=== PATIENT | female | born 1960 | race African-American/Black ===

== ENCOUNTER 2017-06-01 16:04 | Emergency (ER) | payer OTHER ==
[~2017-06-01] VITALS: Ht 167.6 cm; Wt 47.0 kg
[~2017-06-01 16:04] MED LIST: CLON.5 PO; CLON1 PO; MORP1TAB25 PO
[2017-06-01 16:09] VITALS: BP 120/58; PULSE 120; RESP 18; TEMP 100.1; O2SAT 95
[2017-06-01] MEDS ORDERED: CLON0.5T PO (16:22)
[2017-06-01] MEDS ORDERED: ORPHENADRINE INJ 60 MG/2 ML AMP IM ONE (16:45)
[2017-06-01] MEDS ORDERED: KETOROLAC TROMETHAMINE 60 MG/2 ML (IM) VIAL IM ONE (16:45)
[2017-06-01] MEDS ORDERED: ROBA500T PO (17:01)
--- NOTE | 2017-06-01 17:02 | PD ---
HPI Chief Complaint: Pain: Acute or Chronic Time Seen by Provider: 17:00 Travel History International Travel<30 days: No Contact w/Intl Traveler<30days: No Traveled to known affect area: No History of Present Illness HPI 56-year-old female with history of chronic low back pain on methadone here for evaluation of low back pain after she ran out of her medications 3 days ago. She is asking for injection of pain medication specifically. She is also requesting clonazepam. She reports due to insurance purposes she is unable to see her doctor who prescribes her chronic pain and anxiety medications. She denies injury or trauma of the back. She denies fever, chills, incontinence, saddle anesthesia, paresthesia or weakness of the extremities. She denies any history of IV drug abuse. She reports this pain is similar to her chronic back pain although is more severe because she ran out of her meds. PFSH Past Medical History Arthritis: No Asthma: No Autoimmune Disease: No Blood Disorders: No Anxiety: Yes Depression: Yes Heart Rhythm Problems: No Cancer: No Cardiovascular Problems: Yes (endocarditis) High Cholesterol: No Chemotherapy: No Chest Pain: No Congestive Heart Failure: No COPD: No Cerebrovascular Accident: No Diabetes: No Diminished Hearing: No Gastrointestinal Disorders: Yes (HEP C) GERD: No Glaucoma: Yes Headaches: No Hepatitis: Yes (C) Hiatal Hernia: No Hypertension: No Kidney Stones: No Musculoskeletal: Yes (HERNIATED DISC) Neurologic: No Psychiatric: Yes Reproductive: No Respiratory: No Immunizations Current: No Myocardial Infarction: No Radiation Therapy: No Renal Failure: No Seizures: Yes (UNKNOWN) Sickle Cell Disease: No Sleep Apnea: No Thyroid Disease: No Ulcer: No PNEUMOCCOCAL Vaccine (Year): 2 ?: Not Menopausal: Yes Tubal Ligation: Yes Past Surgical History Abdominal Surgery: Yes (gb) AICD: No Cardiac Surgery: No Cholecystectomy: Yes Ear Surgery: No Endocrine Surgery: No Eye Surgery: No Genitourinary Surgery: No Gynecologic Surgery: Yes (TUBAL LIGATION AGE 17) Oral Surgery: No Pacemaker: No Thoracic Surgery: No Other Surgery: Yes Social History Alcohol Use: No Tobacco Use: Yes (/2 PPD) Substance Use: No (DENIES AT PRESENT) Allergies-Medications (Allergen,Severity, Reaction): Coded Allergies: acetaminophen (Unverified Allergy, Severe, SOB, 06/01/17) aspirin (Unverified Allergy, Severe, DIFFICULTY BREATHING, 06/01/17) erythromycin base (Unverified Allergy, Severe, DIFFICULTY BREATHING, 06/01) hydrocodone (Unverified Allergy, Severe, SOB, 06/01/17) ibuprofen (Unverified Allergy, Severe, DIFFICULTY BREATHING, 06/01/17) naproxen (Unverified Allergy, Severe, throat closes, 06/01/17) Reported Meds & Prescriptions Reported Meds & Active Scripts Active Reported Clonazepam 0.5 Mg Tab 0.5 Mg PO BID Review of Systems Except as stated in HPI: all other systems reviewed are Neg General / Constitutional: No: Fever Eyes: No: Visual changes HENT: No: Headaches Cardiovascular: No: Chest Pain or Discomfort Respiratory: No: Shortness of Breath Gastrointestinal: No: Abdominal Pain Genitourinary: No: Dysuria Skin: No Rash Neurologic: No: Weakness Physical Exam Narrative GENERAL: Thin,well-developed female lying on her stomach and appears comfortable. SKIN: Focused skin assessment warm/dry. HEAD: Normocephalic. EYES: No scleral icterus. No injection or drainage. NECK: Supple, trachea midline. No JVD or lymphadenopathy. CARDIOVASCULAR: Regular rate and rhythm without murmurs, gallops, or rubs. RESPIRATORY: Breath sounds equal bilaterally. No accessory muscle use. GASTROINTESTINAL: Abdomen soft, non-tender, nondistended. MUSCULOSKELETAL: No cyanosis, or edema. 5/5 strength in extremities. Dorsiflex and plantarflex intact. BACK: ttp across the lumbar spine without obvious deformity. No CVA tenderness. Data Data Last Documented VS Vital Signs Date Time Temp Pulse Resp B/P (MAP) Pulse Ox O2 Delivery O2 Flow Rate FiO2 06/01/17 16:09 100.1 120 18 120/58 (78) 95 Orders Orders Ketorolac Inj (Toradol Inj) (06/01/17 16:45) Orphenadrine Inj (Norflex Inj) (06/01/17 16:45) MDM Medical Decision Making Medical Screen Exam Complete: Yes Emergency Medical Condition: Yes Differential Diagnosis Acute on chronic back pain, medication refill, epidural abscess Narrative Course 56-year-old female with history of chronic low back pain on methadone here for evaluation of low back pain after she ran out of her medications 3 days ago. She is asking for injection of pain medication specifically. She is also requesting clonazepam. She is nontoxic appearing. Her vital signs in triage showed a low-grade fever of the temporal 100.1, heart rate of 120. She denies history of IV drug abuse, epidural abscess, osteomyelitis. She denies fever, chills, incontinence, saddle anesthesia, or paresthesia/weakness in extremities. I explained to the patient that I would not prescribe opiates or benzodiazepines refills. Given her abnormal vital signs I recommended blood work and imaging to rule out epidural abscess she refused this Stating she did not believe that this was necessary and just wanted medications now until her follow-up appointment with new pain management on Saturday. She reports this pain is similar to her chronic back pain and is only exacerbated because she ran out of her meds. I explained the risk for infection, paralysis and she verbalizes understanding and agrees to return if she develops new or worsening symptoms or decides to have the workup. Reassessment: Patient is lying comfortably on the bed in no distress. Repeat vitals T 100, HR 105. She is requesting discharge. Diagnosis Primary Impression: Back pain Qualified Codes: M54.42 - Lumbago with sciatica, left side Referrals: Primary Care Physician Additional Instructions: Return to emergency department if he developed new or worsening symptoms. Keep the follow-up appointment with her doctor on Saturday. Disposition: DISCHARGE HOME Condition: Stable Hattie Maddox Jun 01, 2017 17:02
== END 2017-06-01 17:10 | disposition home or self-care (01) ==
LOC: PHEFT 16:04
DX: M54.42 Lumbago with sciatica, left side (principal); F32.9 Major depressive disorder, single episode, unspecified; B19.20 Unspecified viral hepatitis C without hepatic coma; F17.210 Nicotine dependence, cigarettes, uncomplicated; Z79.891 Long term (current) use of opiate analgesic; Z79.899 Other long term (current) drug therapy
CPT/HCPCS: 96372; 99284; J1885; J2360

== ENCOUNTER 2017-10-27 19:07 | Emergency (ER) | payer OTHER ==
[2017-10-27] VITALS (7 sets, daily range): BP systolic 112–149; BP diastolic 63–76; PULSE 93–111; RESP 16; TEMP 98.4–99; O2SAT 98–100
[~2017-10-27] VITALS: Ht 167.6 cm; Wt 53.5 kg
[~2017-10-27 19:07] MED LIST changes: -CLON.5 PO; +CLON0.5T PO; -CLON1 PO; -MORP1TAB25 PO
[2017-10-27] MEDS ORDERED: SODIUM CHLOR 0.9% 1000 ML INJ 1,000 ML IV ONE (19:14)
[2017-10-27] MEDS ORDERED: SODIUM CHLORIDE 0.9% FLUSH 10 ML FLUSH IVF PRN (19:15)
[2017-10-27] MEDS ORDERED: LORazepam 2 MG/ML VIAL IVS ONE (19:15)
--- NOTE | 2017-10-27 19:19 | PD ---
HPI Chief Complaint: Seizure Time Seen by Provider: 19:14 Travel History International Travel<30 days: No ( ) Contact w/Intl Traveler<30days: No ( ) History of Present Illness HPI The patient is 57 years old and arrives by private vehicle from home. Evidently she was seizing in the waiting room and brought back for seizures. Patient does not answer questions and exam room. She has been seen here multiple times previously diagnoses listed include pseudoseizure. PFSH Past Medical History Arthritis: No Asthma: No Autoimmune Disease: No Blood Disorders: No Anxiety: Yes Depression: Yes Heart Rhythm Problems: No Cancer: No Cardiovascular Problems: Yes (endocarditis) High Cholesterol: No Chemotherapy: No Chest Pain: No Congestive Heart Failure: No COPD: No Cerebrovascular Accident: No Diabetes: No Diminished Hearing: No Gastrointestinal Disorders: Yes (HEP C) GERD: No Glaucoma: Yes Headaches: No Hepatitis: Yes (C) Hiatal Hernia: No Hypertension: No Kidney Stones: No Musculoskeletal: Yes (HERNIATED DISC) Neurologic: No Psychiatric: Yes Reproductive: No Respiratory: No Immunizations Current: No Myocardial Infarction: No Radiation Therapy: No Renal Failure: No Seizures: Yes (UNKNOWN) Sickle Cell Disease: No Sleep Apnea: No Thyroid Disease: No Ulcer: No PNEUMOCCOCAL Vaccine (Year): 2 Menopausal: Yes Tubal Ligation: Yes Past Surgical History Abdominal Surgery: Yes (gb) AICD: No Cardiac Surgery: No Cholecystectomy: Yes Ear Surgery: No Endocrine Surgery: No Eye Surgery: No Genitourinary Surgery: No Gynecologic Surgery: Yes (TUBAL LIGATION AGE 17) Oral Surgery: No Pacemaker: No Thoracic Surgery: No Other Surgery: Yes Social History Alcohol Use: No Tobacco Use: Yes (1/2 PPD) Substance Use: No (DENIES AT PRESENT) Allergies-Medications (Allergen,Severity, Reaction): Coded Allergies: acetaminophen (Unverified Allergy, Severe, SOB, 06/01/17) aspirin (Unverified Allergy, Severe, DIFFICULTY BREATHING, 06/01/17) erythromycin base (Unverified Allergy, Severe, DIFFICULTY BREATHING, 06/01) hydrocodone (Unverified Allergy, Severe, SOB, 06/01/17) ibuprofen (Unverified Allergy, Severe, DIFFICULTY BREATHING, 06/01/17) naproxen (Unverified Allergy, Severe, throat closes, 06/01/17) Reported Meds & Prescriptions Reported Meds & Active Scripts Active Clonidine (Clonidine HCl) 0.1 Mg Tab 0.1 Mg PO BID Reported Clonazepam 0.5 Mg Tab 0.5 Mg PO BID Review of Systems ROS Limitations: Clinical Condition, Altered Mental Status Physical Exam Narrative GENERAL: 57-year-old female well-nourished well-developed Vital Signs Date Time Temp Pulse Resp B/P (MAP) Pulse Ox O2 Delivery O2 Flow Rate FiO2 10/27/17 20:25 111 16 119/63 (81) 98 Room Air 10/27/17 19:12 99.0 103 16 149/74 (99) 99 Room Air 10/27/17 19:10 16 100 Nasal Cannula 2.00 10/27/17 19:07 98.4 16 99 SKIN: Warm and dry. HEAD: Atraumatic. Normocephalic. EYES: Pupils equal and round. No scleral icterus. No injection or drainage. ENT: No nasal bleeding or discharge. Mucous membranes pink and moist. NECK: Trachea midline. No JVD. CARDIOVASCULAR: Regular rate and rhythm. RESPIRATORY: No accessory muscle use. Clear to auscultation. Breath sounds equal bilaterally. GASTROINTESTINAL: Abdomen soft, non-tender, nondistended. Hepatic and splenic margins not palpable. MUSCULOSKELETAL: Extremities without clubbing, cyanosis, or edema. No obvious deformities. NEUROLOGICAL: Patient's eyes open intermittently. No verbal response to questions as offered. PSYCHIATRIC: Frequent redirection required. Data Data Last Documented VS Vital Signs Date Time Temp Pulse Resp B/P (MAP) Pulse Ox O2 Delivery O2 Flow Rate FiO2 10/27/17 21:47 107 16 118/76 (90) 98 Nasal Cannula 2.00 10/27/17 19:12 99.0 Orders Orders Complete Blood Count With Diff (10/27/17 19:14) Alcohol (Ethanol) (10/27/17 19:14) Electrocardiogram (10/27/17 ) Ct Brain W/O Iv Contrast(Rout) (10/27/17 ) Blood Glucose (10/27/17 19:14) Ecg Monitoring (10/27/17 19:14) Iv Access Insert/Monitor (10/27/17 19:14) Oximetry (10/27/17 19:14) Cath For Specimen (10/27/17 19:14) Comprehensive Metabolic Panel (10/27/17 19:14) Sodium Chlor 0.9% 1000 Ml Inj (Ns 1000 M (10/27/17 19:14) Sodium Chloride 0.9% Flush (Ns Flush) (10/27/17 19:15) Lorazepam Inj (Ativan Inj) (10/27/17 19:15) Ua Includes Microscopic (10/27/17 19:14) Lorazepam Inj (Ativan Inj) (10/27/17 19:30) Ondansetron Inj (Zofran Inj) (10/27/17 20:00) Drug Screen, Random Urine (10/27/17 20:29) Ed Discharge Order (10/27/17 21:29) Clonidine (Catapres) (10/27/17 21:30) Ed Discharge Order (10/27/17 21:29) Labs Laboratory Tests Test 10/27/17 19:40 10/27/17 20:00 10/27/17 20:06 Urine Collection Type CATH Urine Color YELLOW Urine Turbidity CLEAR Urine pH 6.5 Urine Specific [place] 1.015 Urine Protein NEG mg/dL Urine Glucose (UA) NEG mg/dL Urine Ketones NEG mg/dL Urine Occult Blood NEG Urine Nitrite NEG Urine Bilirubin NEG Urine Urobilinogen 1.0 MG/DL Urine Leukocyte Esterase NEG Urine RBC 4-9 /hpf Urine Squamous Epithelial Cells 0-5 /hpf Urine Amorphous Sediment FEW Urine Mucus FEW /lpf Microscopic Urinalysis Comment CATH-CULT NOT IND White Blood Count 6.2 TH/MM3 Red Blood Count 4.74 MIL/MM3 Hemoglobin 12.9 GM/DL Hematocrit 39.2 % Mean Corpuscular Volume 82.7 FL Mean Corpuscular Hemoglobin 27.1 PG Mean Corpuscular Hemoglobin Concent 32.8 % Red Cell Distribution Width 12.7 % Platelet Count 203 TH/MM3 Mean Platelet Volume 8.3 FL Neutrophils (%) (Auto) 74.5 % Lymphocytes (%) (Auto) 16.8 % Monocytes (%) (Auto) 4.3 % Eosinophils (%) (Auto) 0.1 % Basophils (%) (Auto) 4.3 % Neutrophils # (Auto) 4.6 TH/MM3 Lymphocytes # (Auto) 1.0 TH/MM3 Monocytes # (Auto) 0.3 TH/MM3 Eosinophils # (Auto) 0.0 TH/MM3 Basophils # (Auto) 0.3 TH/MM3 CBC Comment DIFF FINAL Differential Comment Blood Urea Nitrogen 18 MG/DL Creatinine 0.76 MG/DL Random Glucose 122 MG/DL Total Protein 9.1 GM/DL Albumin 4.1 GM/DL Calcium Level 9.4 MG/DL Alkaline Phosphatase 85 U/L Aspartate Amino Transf (AST/SGOT) 47 U/L Alanine Aminotransferase (ALT/SGPT) 55 U/L Total Bilirubin 0.5 MG/DL Sodium Level 141 MEQ/L Potassium Level 3.7 MEQ/L Chloride Level 107 MEQ/L Carbon Dioxide Level 23.4 MEQ/L Anion Gap 11 MEQ/L Estimat Glomerular Filtration Rate 96 ML/MIN Ethyl Alcohol Level LESS THAN 3 MG/DL Urine Opiates Screen POS Urine Barbiturates Screen NEG Urine Amphetamines Screen NEG Urine Benzodiazepines Screen NEG Urine Cocaine Screen POS Urine Cannabinoids Screen NEG MDM Medical Decision Making Medical Screen Exam Complete: Yes Emergency Medical Condition: Yes Medical Record Reviewed: Yes Differential Diagnosis seizure, pseudoseizure, opioid withdrawal, electrolyte imbalance, anemia, infection, ICH Narrative Course CBC & BMP Diagram 10/27/17 20:00 Total Protein 9.1 H, Albumin 4.1, Calcium Level 9.4, Alkaline Phosphatase 85, Aspartate Amino Transf (AST/SGOT) 47 H, Alanine Aminotransferase (ALT/SGPT) 55 H , Total Bilirubin 0.5 Urine tox: cocaine and opioids Episodes of self-inflicted vomiting/gagging observed Pt will be discharge home. Patient requested a clonidine prescription which we can do because she will not receive her methadone from a week. Diagnosis Primary Impression: Pseudoseizures Additional Impressions: Opioid abuse Polysubstance abuse Med/Other Pt SpecificInfo: No Change to Meds Scripts Clonidine (Clonidine) 0.1 Mg Tab 0.1 MG PO BID for Blood Pressure Management, #10 TAB 0 Refills Prov: Ever Clark MD 10/27/17 Disposition: DISCHARGE HOME Condition: Stable Ever Clark MD Oct 27, 2017 19:19
[2017-10-27] MEDS ORDERED: LORazepam 2 MG/ML VIAL IV PUSH ONE (19:30)
[2017-10-27] MEDS ORDERED: ONDANSETRON HCL 4 MG/2 ML VIAL IV PUSH ONE (20:00)
--- NOTE | 2017-10-27 20:00 | RADRPT ---
EXAM DATE/TIME: 10/27/2017 19:42 [facility] COMPARISON: CT BRAIN W/O CONTRAST, April 22, 2016, 10:25. INDICATIONS : Alteed mental status. Seizures. RADIATION DOSE: 43.84 CTDIvol (mGy) MEDICAL HISTORY : Seizures. SURGICAL HISTORY : Tubal ligation. ENCOUNTER: Initial ACUITY: 1 day PAIN SCALE: 0/10 LOCATION: cranial TECHNIQUE: Multiple contiguous axial images were obtained of the head. Using automated exposure control and adj ustment of the mA and/or kV according to patient size, radiation dose was kept as low as reasonably a chievable to obtain optimal diagnostic quality images. DICOM format image data is available electro nically for review and comparison. FINDINGS: CEREBRUM: The ventricles are normal for age. No evidence of midline shift, mass lesion, hemorrhage or acute in farction. No extra-axial fluid collections are seen. POSTERIOR FOSSA: The cerebellum and brainstem are intact. The 4th ventricle is midline. The cerebellopontine angle i s unremarkable. EXTRACRANIAL: The visualized portion of the orbits is intact. SKULL: The calvaria is intact. No evidence of skull fracture. CONCLUSION: No acute disease. Uriel Sahni MD on October 27, 2017 at 19:57 Board Certified Radiologist. This report was verified electronically.
[2017-10-27 20:18] LABS: AUTOMATED NEUTROPHIL # 4.6 TH/MM3 (1.8-7.7); BASOPHIL # 0.3 TH/MM3 (0-0.2); BASOPHIL % 4.3 % (0.0-2.0); CHLORIDE 107 MEQ/L (98-107); EOSINOPHIL % 0.1 % (0.0-4.0); HEMATOCRIT 39.2 % (35.0-46.0); HEMOGLOBIN 12.9 GM/DL (11.6-15.3); LYMPH % 16.8 % (9.0-44.0); MEAN CELL VOLUME 82.7 FL (80.0-100.0); MEAN CORPUSCULAR HEMOGLOBIN 27.1 PG (27.0-34.0); MEAN CORPUSCULAR HGB CONC 32.8 % (32.0-36.0); MEAN PLATELET VOLUME 8.3 FL (7.0-11.0); MONO % 4.3 % (0.0-8.0); MONOCYTE # 0.3 TH/MM3 (0-0.9); NEUT % 74.5 % (16.0-70.0); PLATELET COUNT 203 TH/MM3 (150-450); RED BLOOD COUNT 4.74 MIL/MM3 (4.00-5.30); RED CELL DISTRIBUTION WIDTH 12.7 % (11.6-17.2); SODIUM (NA) 141 MEQ/L (136-145); WHITE BLOOD COUNT 6.2 TH/MM3 (4.0-11.0)
[2017-10-27 20:21] LABS: ALBUMIN 4.1 GM/DL (3.4-5.0); BICARBONATE 23.4 MEQ/L (21.0-32.0); BLOOD UREA NITROGEN 18 MG/DL (7-18); CALCIUM 9.4 MG/DL (8.5-10.1); GLUCOSE,RANDOM 122 MG/DL (74-106)
[2017-10-27 20:23] LABS: BILIRUBIN, URINE NEG (NEG); BLOOD, URINE NEG (NEG); GLUCOSE,URINE NEG (NEG); KETONE, URINE NEG (NEG); NITRITE,URINE NEG (NEG); PH, URINE 6.5 (5.0-8.5); URINE COLOR YELLOW (YELLW/STRAW); URINE LEUKOCYTE ESTERASE NEG (NEG)
[2017-10-27 20:24] LABS: ALT (GPT) 55 U/L (10-53); AST (GOT) 47 U/L (15-37); CREATININE 0.76 MG/DL (0.50-1.00); GLOMERULAR FILTRATION RATE 96 ML/MIN (>89)
[2017-10-27 20:26] LABS: TOTAL BILIRUBIN ADULT 0.5 MG/DL (0.2-1.0); TOTAL PROTEIN 9.1 GM/DL (6.4-8.2)
[2017-10-27 20:27] LABS: ALKALINE PHOSPHATASE 85 U/L (45-117)
[2017-10-27 20:41] LABS: AMORPHOUS SEDIMENT, URINE FEW; MUCUS URINE FEW /lpf (OCC); SQUAMOUS EPITHELIAL CELL URINE 0-5 /hpf (0-5)
[2017-10-27] MEDS ORDERED: CLON0.1T PO (21:30)
[2017-10-27] MEDS ORDERED: cloNIDine HCL 0.1 MG TAB PO ONE (21:30)
--- NOTE | 2017-10-28 10:29 | EKG ---
Date Performed: 10/27/2017 Time Performed: 20:52:01 PTAGE: 57 years EKG: Sinus rhythm NORMAL ECG Since the PREVIOUS TRACING , no significant change noted PREVIOUS TRACIN07/12/2016 03.58 DOCTOR: Jose Gleason Interpretating Date/Time 10/28/2017 10:28:12
== END 2017-10-27 22:36 | disposition home or self-care (01) ==
LOC: PHED 19:07
DX: R56.9 Unspecified convulsions (principal); F11.10 Opioid abuse, uncomplicated; F14.10 Cocaine abuse, uncomplicated; F41.9 Anxiety disorder, unspecified; F32.9 Major depressive disorder, single episode, unspecified; H40.9 Unspecified glaucoma; F17.200 Nicotine dependence, unspecified, uncomplicated; Z88.6 Allergy status to analgesic agent; Z86.19 Personal history of other infectious and parasitic diseases
CPT/HCPCS: 70450; 80053; 80307; 81001; 85025; 93005; 96361; 96374; 96375; 96376; 99285; J2060; J2405; J7030

== ENCOUNTER 2017-10-28 04:04 | Emergency (ER) | payer OTHER ==
[~2017-10-28] VITALS: Ht 162.6 cm; Wt 55.0 kg
[~2017-10-28 04:04] MED LIST changes: +CLON0.1T PO
[2017-10-28 04:10] VITALS: TEMP 99.8
[2017-10-28 04:13] VITALS: BP 121/73; PULSE 96; RESP 16; O2SAT 100
[2017-10-28 05:41] VITALS: BP 139/81; PULSE 90; RESP 16; O2SAT 100
--- NOTE | 2017-10-28 05:43 | PD ---
HPI . Jerking Chief Complaint: Medical Clearance Time Seen by Provider: 04:30 Travel History International Travel<30 days: No Contact w/Intl Traveler<30days: No Traveled to known affect area: No History of Present Illness HPI This patient presents to us by EVAC with the chief complaint of jerking. EVAC was reportedly called by her boyfriend who was concerned that she was having seizure activity. This patient has reportedly been on methadone but has been out for the last week. The boyfriend was reportedly concerned that she was having withdrawal seizures. EVAC was called and she was brought here. When I went into see the patient, she was sound asleep. I did not attempt to arouse her. PFSH Past Medical History Arthritis: No Asthma: No Autoimmune Disease: No Blood Disorders: No Anxiety: Yes Depression: Yes Heart Rhythm Problems: No Cancer: No Cardiovascular Problems: Yes (endocarditis) High Cholesterol: No Chemotherapy: No Chest Pain: No Congestive Heart Failure: No COPD: No Cerebrovascular Accident: No Diabetes: No Diminished Hearing: No Gastrointestinal Disorders: Yes (HEP C) GERD: No Glaucoma: Yes Headaches: No Hepatitis: Yes (C) Hiatal Hernia: No Hypertension: No Kidney Stones: No Musculoskeletal: Yes (HERNIATED DISC) Neurologic: No Psychiatric: Yes Reproductive: No Respiratory: No Immunizations Current: No Myocardial Infarction: No Radiation Therapy: No Renal Failure: No Seizures: Yes Sickle Cell Disease: No Sleep Apnea: No Thyroid Disease: No Ulcer: No PNEUMOCCOCAL Vaccine (Year): 2 ?: Not Menopausal: Yes Tubal Ligation: Yes Past Surgical History Abdominal Surgery: Yes (gb) AICD: No Cardiac Surgery: No Cholecystectomy: Yes Ear Surgery: No Endocrine Surgery: No Eye Surgery: No Genitourinary Surgery: No Gynecologic Surgery: Yes (TUBAL LIGATION AGE 17) Insulin Pump: No Neurologic Surgery: No Oral Surgery: No Pacemaker: No Thoracic Surgery: No Other Surgery: Yes Social History Alcohol Use: Yes (4pk/daily) Tobacco Use: Yes (1/2 PPD) Substance Use: Yes (Hx of Morphine,Cocaine) Allergies-Medications (Allergen,Severity, Reaction): Coded Allergies: acetaminophen (Unverified Allergy, Severe, SOB, 10/28/17) aspirin (Unverified Allergy, Severe, DIFFICULTY BREATHING, 10/28/17) erythromycin base (Unverified Allergy, Severe, DIFFICULTY BREATHING, ) hydrocodone (Unverified Allergy, Severe, SOB, 10/28/17) ibuprofen (Unverified Allergy, Severe, DIFFICULTY BREATHING, 10/28/17) naproxen (Unverified Allergy, Severe, throat closes, 10/28/17) Reported Meds & Prescriptions Reported Meds & Active Scripts Active Clonidine (Clonidine HCl) 0.1 Mg Tab 0.1 Mg PO BID Reported Clonazepam 0.5 Mg Tab 0.5 Mg PO BID Review of Systems ROS Limitations: Other: (Asleep) Physical Exam Narrative GENERAL: This patient presented to us by EVAC thrashing about on the stretcher. When I went into see her, she was sound asleep. SKIN: warm/dry. HEAD: Normocephalic. Atraumatic. EYES: Pupils equal and round. No scleral icterus. No injection or drainage. NECK: Full range of motion without pain.. CARDIOVASCULAR: Regular rate and rhythm. RESPIRATORY: No accessory muscle use. MUSCULOSKELETAL: No obvious deformities. NEUROLOGICAL: The patient is moving all 4 extremities equally. She did not have an alteration in her level of consciousness with her thrashing. PSYCHIATRIC: Unable to assess Data Data Last Documented VS Vital Signs Date Time Temp Pulse Resp B/P (MAP) Pulse Ox O2 Delivery O2 Flow Rate FiO2 10/28/17 04:13 96 16 121/73 (89) 100 Room Air 10/28/17 04:10 99.8 MDM Medical Decision Making Medical Screen Exam Complete: Yes Emergency Medical Condition: Yes Medical Record Reviewed: Yes (This patient was seen here last night with the same thing. She was fully evaluated at that time. She was discharged with the diagnosis of pseudoseizures. Her drug screen was positive for cocaine and opiates.) Differential Diagnosis Differential diagnosis of seizure includes but is not limited to epilepsy, electrolyte abnormality, previous stroke, closed head injury, pseudoseizure Narrative Course The patient presented to us via EVAC with the chief complaint of seizure. The patient was thrashing about on the stretcher with no alteration in her level of consciousness. The patient has subsequently been asleep. She has now awakened and is complaining with pain and asking for pain medication. This patient was seen here last night with the same complaint. She was fully evaluated. Her evaluation will not be repeated. Diagnosis Primary Impression: Pseudoseizures Additional Impression: Substance abuse Disposition: 01 DISCHARGE HOME Condition: Stable Tia Elliott MD Oct 28, 2017 05:43
== END 2017-10-28 06:07 | disposition home or self-care (01) ==
LOC: NEPE 04:04
DX: F44.5 Conversion disorder with seizures or convulsions (principal); F41.8 Other specified anxiety disorders; F15.10 Other stimulant abuse, uncomplicated; B19.20 Unspecified viral hepatitis C without hepatic coma; H40.9 Unspecified glaucoma; I38 Endocarditis, valve unspecified; F17.210 Nicotine dependence, cigarettes, uncomplicated; Z88.6 Allergy status to analgesic agent; Z88.1 Allergy status to other antibiotic agents
CPT/HCPCS: 99283

== ENCOUNTER 2017-11-05 06:35 | Emergency (ER) | payer OTHER ==
[~2017-11-05] VITALS: Ht 175.3 cm; Wt 48.6 kg
[2017-11-05 06:38] VITALS: BP 125/83; PULSE 87; RESP 22; TEMP 98.7; O2SAT 97
[2017-11-05] MEDS ORDERED: SODIUM CHLOR 0.9% 1000 ML INJ 1,000 ML IV SCH (07:00)
[2017-11-05] MEDS ORDERED: GABA800T PO (07:15)
[2017-11-05] MEDS ORDERED: MORP1TAB25 PO (07:15)
--- NOTE | 2017-11-05 07:15 | PD ---
HPI Chief Complaint: Seizure Time Seen by Provider: 06:59 Travel History International Travel<30 days: No Contact w/Intl Traveler<30days: No Traveled to known affect area: No History of Present Illness HPI The patient is a 57 year old female who presents to the [facility] emergency department with a history of seizure activity reported prior to arrival. There was a concern by the ambulance crew that the patient seizure activity that was witnessed by them may have been pseudoseizures as the patient appeared to have no postictal state. According to the patient's daughter the patient had a 10-15 minute seizure earlier this evening. She reports that she heard her fall from the couch and witnessed her to be seizing. The patient reportedly has a history of seizure disorder and substance abuse. The only medication that the patient's daughter was aware that the patient takes his gabapentin. The patient on arrival is nonverbal. The patient is staring with her eyes open. The patient has her mouth clenched. The patient has no visible seizure activity noted. The patient is uncooperative with any further history. The patient's history is obtained from reviewing the electronic medical record. The patient's blood sugar reportedly was 111 prior to arrival. [facility] Past Medical History Narrative Medical The patient's past medical history is significant for seizure disorder, substance abuse, endocarditis, hepatitis C, anxiety and depression Arthritis: No Asthma: No Autoimmune Disease: No Blood Disorders: No Anxiety: Yes Depression: Yes Heart Rhythm Problems: No Cancer: No Cardiovascular Problems: Yes (endocarditis) High Cholesterol: No Chemotherapy: No Chest Pain: No Congestive Heart Failure: No COPD: No Cerebrovascular Accident: No Diabetes: No Diminished Hearing: No Gastrointestinal Disorders: Yes (HEP C) GERD: No Glaucoma: Yes Headaches: No Hepatitis: Yes (C) Hiatal Hernia: No Hypertension: No Kidney Stones: No Musculoskeletal: Yes (HERNIATED DISC) Neurologic: No Psychiatric: Yes Reproductive: No Respiratory: No Immunizations Current: No Myocardial Infarction: No Radiation Therapy: No Renal Failure: No Seizures: Yes Sickle Cell Disease: No Sleep Apnea: No Thyroid Disease: No Ulcer: No PNEUMOCCOCAL Vaccine (Year): 2 ?: Unknown Menopausal: Yes Tubal Ligation: Yes Past Surgical History Narrative Surgical The patient's past surgical history is significant for a bilateral tubal ligation, cholecystectomy Abdominal Surgery: Yes (gb) AICD: No Cardiac Surgery: No Cholecystectomy: Yes Ear Surgery: No Endocrine Surgery: No Eye Surgery: No Genitourinary Surgery: No Gynecologic Surgery: Yes (TUBAL LIGATION AGE 17) Insulin Pump: No Neurologic Surgery: No Oral Surgery: No Pacemaker: No Thoracic Surgery: No Other Surgery: Yes Social History Alcohol Use: Yes (4pk/daily) Tobacco Use: Yes (1/2 PPD) Substance Use: Yes (Hx of Morphine,Cocaine) Allergies-Medications (Allergen,Severity, Reaction): Coded Allergies: acetaminophen (Unverified Allergy, Severe, SOB, 11/05/17) aspirin (Unverified Allergy, Severe, DIFFICULTY BREATHING, 11/05/17) erythromycin base (Unverified Allergy, Severe, DIFFICULTY BREATHING, ) hydrocodone (Unverified Allergy, Severe, SOB, 11/05/17) ibuprofen (Unverified Allergy, Severe, DIFFICULTY BREATHING, 11/05/17) naproxen (Unverified Allergy, Severe, throat closes, 11/05/17) Reported Meds & Prescriptions Reported Meds & Active Scripts Active Clonidine (Clonidine HCl) 0.1 Mg Tab 0.1 Mg PO BID Reported Gabapentin 800 Mg Tab 800 Mg PO BID Morphine ER (Morphine Sulfate) 30 Mg Tab 30 Mg PO Q8H Clonazepam 0.5 Mg Tab 0.5 Mg PO BID Review of Systems ROS Limitations: Poor Historian Neurologic: Positive: Change in Mentation, Seizures Physical Exam Narrative General: The patient is a well-developed well-nourished female in no acute distress. Head and Neck exam: Head is normocephalic atraumatic. Eyes: The patient is staring straight ahead. Pupils are equal round reactive to light. The patient is uncooperative with extraocular motion testing. Nose: Midline septum with pink mucous membranes Mouth: The patient is clenching her mouth shut making it impossible to evaluate her dentition or inside of her mouth. Neck: No palpable lymphadenopathy. No nuchal rigidity. No thyromegaly. Cardiovascular: Regular rate and rhythm without murmurs, gallops, or rubs. Lungs: Clear to auscultation bilaterally. No wheezes, rhonchi, or rales. Abdomen: Soft, without tenderness to palpation in all 4 quadrants of the abdomen. No guarding, rebound, or rigidity. Normal bowel sounds are audible. No tenderness on palpation of McBurney's point. Extremities: No clubbing, cyanosis, or edema. 2+ pulses in all 4 extremities. No calf tenderness on palpation. Back: No spinous process tenderness to palpation. No costovertebral angle tenderness to palpation. Neurologic Exam: The patient is uncooperative with formal neurologic testing. The patient is noted to have rigidity of her upper extremity when attempts are made at range of motion of it. The patient clenches her fist tightly and flexing her arm at the elbow with any attempts at range of motion on either side. Skin Exam: No rash noted. Intact skin that is warm and dry. Data Data Last Documented VS Vital Signs Date Time Temp Pulse Resp B/P (MAP) Pulse Ox O2 Delivery O2 Flow Rate FiO2 11/05/17 07:19 96 19 100 Room Air 11/05/17 07:17 125/83 (97) 11/05/17 06:38 98.7 Orders Orders Electrocardiogram (11/05/17 06:59) Complete Blood Count With Diff (11/05/17 06:59) Comprehensive Metabolic Panel (11/05/17 06:59) Creatine Kinase (Cpk) (11/05/17 06:59) Ckmb (Isoenzyme) Profile (11/05/17 06:59) Troponin I (11/05/17 06:59) Prothrombin Time / Inr (Pt) (11/05/17 06:59) Act Partial Throm Time (Ptt) (11/05/17 06:59) Urinalysis - C+S If Indicated (11/05/17 06:59) Magnesium (Mg) (11/05/17 06:59) Chest, Single Ap (11/05/17 06:59) Ct Brain W/O Iv Contrast(Rout) (11/05/17 06:59) Iv Access Insert/Monitor (11/05/17 06:59) Ecg Monitoring (11/05/17 06:59) Oximetry (11/05/17 06:59) Drug Screen, Random Urine (11/05/17 06:59) Alcohol (Ethanol) (11/05/17 06:59) Sodium Chlor 0.9% 1000 Ml Inj (Ns 1000 M (11/05/17 07:00) MDM Medical Decision Making Medical Screen Exam Complete: Yes Emergency Medical Condition: Yes Medical Record Reviewed: Yes Differential Diagnosis Pseudoseizure, versus seizure, versus electrolyte derangement, versus encephalopathy, versus intracranial abnormality Narrative Course During the course of the patient's emergency department visit, the patient's history, examination, and differential diagnosis were reviewed with the patient. The patient was placed on a phototypesetting equipment monitor with oximetry and frequent blood pressure monitoring. The patient had IV access obtained and blood work sent for analysis. The patient was initially provided normal saline IV fluids. The patient's imaging and laboratory studies are pending at the conclusion of my shift. The patient's case was checked out to the oncoming emergency physician to disposition the patient based on the conclusion of her workup. Diagnosis Primary Impression: Altered mental status Qualified Codes: R41.82 - Altered mental status, unspecified Additional Impression: Chest pain Jessica Wahl MD Nov 05, 2017 07:15
[2017-11-05 07:17] VITALS: BP 125/83; PULSE 96; RESP 19; O2SAT 100
[2017-11-05 07:21] VITALS: BP 125/83; PULSE 96; RESP 19; TEMP 99.3; O2SAT 100
[2017-11-05 07:56] VITALS: BP 125/83
--- NOTE | 2017-11-05 08:00 | PD ---
Physical Exam Narrative GENERAL: 57-year-old female in no apparent distress SKIN: Focused skin assessment warm/dry. HEAD: Atraumatic. Normocephalic. EYES: Pupils equal and round. No scleral icterus. No injection or drainage. ENT: No nasal bleeding or discharge. Mucous membranes pink and moist. NECK: Trachea midline. CARDIOVASCULAR: Regular rate and rhythm. RESPIRATORY: No accessory muscle use. No increased effort MUSCULOSKELETAL: No obvious deformities. No clubbing. No cyanosis. No edema. NEUROLOGICAL: Awake and alert. No obvious cranial nerve deficits. Motor grossly within normal limits. Normal speech. PSYCHIATRIC: Appropriate mood and affect; insight and judgment normal. Data Data Last Documented VS Vital Signs Date Time Temp Pulse Resp B/P (MAP) Pulse Ox O2 Delivery O2 Flow Rate FiO2 11/05/17 07:56 125/83 (97) 11/05/17 07:21 99.3 96 19 100 Room Air Orders Orders Electrocardiogram (11/05/17 06:59) Sodium Chlor 0.9% 1000 Ml Inj (Ns 1000 M (11/05/17 07:00) MDM Supervised Visit with ADI: No Narrative Course Signed over to me to follow workup and reevaluate. I was informed by nursing staff at 745 the patient was wanting to leave AMA. Patient is currently awake alert and oriented. Steady gait. Patient is wanting me to give her methadone, morphine, Klonopin because she states she has chronic back pain. I told her we need to wait for her testing as she recently was not interacting with the doctor. Episode before lasted 10 seconds and likely was another pseudoseizure. She elects to leave AMA and has a ride out front. AMA: The risks of leaving against medical advice without further evaluation treatment were discussed with the patient. These risks include cardiac dysfunction, cardiac dysrhythmia, possible heart attack, possible stroke or . The patient indicated understanding of these risks and appeared to have the capacity to make this decision. Diagnosis Primary Impression: Recurrent seizures Patient Instructions: General Instructions Departure Forms: Tests/Procedures Disposition: 07 AGAINST MEDICAL ADVICE Condition: Stable Samantha Echeverria MD Nov 05, 2017 08:00
== END 2017-11-05 07:55 | disposition left against medical advice (07) ==
LOC: NEPE 06:35
DX: G40.909 Epilepsy, unspecified, not intractable, without status epilepticus (principal); R07.9 Chest pain, unspecified; F17.200 Nicotine dependence, unspecified, uncomplicated
CPT/HCPCS: 99281; J7030